=== PATIENT | male | born 1970 | race Caucasian/White ===

== ENCOUNTER 2018-05-04 21:57 | Emergency (ER) | payer MEDICARE, MEDICAID ==
[2018-05-04 22:56] LABS: HEMATOCRIT 45.2 % (42.0-52.0); HEMOGLOBIN 15.4 g/dl (13.5-17.5); MEAN CORPUSCULAR HGB CONC 34.1 g/dl (32.0-36.5); PLATELET COUNT, AUTOMATED 226 10^3/uL (150-450); RED BLOOD COUNT 4.81 10^6/uL (4.30-6.10); RED CELL DISTRIBUTION WIDTH 12.9 % (11.5-14.5); WHITE BLOOD COUNT 10.4 10^3/uL (4.0-10.0)
[2018-05-05 00:08] LABS: PROTHROMBIN TIME 13.2 SECONDS (12.4-14.5)
[2018-05-05 00:09] LABS: INR 0.99
[2018-05-05 00:19] LABS: CALCIUM LEVEL 6.1 MG/DL (8.5-10.1)
[2018-05-05 00:20] LABS: ANION GAP 10 MEQ/L (8-16); BLOOD UREA NITROGEN 9 MG/DL (7-18); CARBON DIOXIDE LEVEL 19 MEQ/L (21-32); CHLORIDE LEVEL 115 MEQ/L (98-107); ETHYL ALCOHOL (ETHANOL) 0.136 % (0.000-0.010); GLOMERULAR FILTRATION RATE > 60.0 (>60); GLUCOSE, FASTING 63 MG/DL (70-100); POTASSIUM SERUM 3.3 MEQ/L (3.5-5.1); SODIUM LEVEL 144 MEQ/L (136-145)
== END 2018-05-05 02:10 | disposition home or self-care (01) ==
LOC: M ED 21:57
DX: S00.212A Abrasion of left eyelid and periocular area, initial encounter (principal); F10.10 Alcohol abuse, uncomplicated; W19.XXXA Unspecified fall, initial encounter; Y92.410 Unspecified street and highway as the place of occurrence of the external cause; F17.200 Nicotine dependence, unspecified, uncomplicated
CPT/HCPCS: 70450

== ENCOUNTER 2018-08-26 12:30 | Emergency (ER) | payer MEDICARE, MEDICAID | END 2018-08-26 15:19 | disposition home or self-care (01) | LOC: M ED 12:30 | DX: S22.41XA Multiple fractures of ribs, right side, initial encounter for closed fracture (principal); W10.9XXA Fall (on) (from) unspecified stairs and steps, initial encounter; Y92.009 Unspecified place in unspecified non-institutional (private) residence as the place of occurrence of the external cause; J98.11 Atelectasis; F17.200 Nicotine dependence, unspecified, uncomplicated; Z87.820 Personal history of traumatic brain injury | CPT/HCPCS: 71046 ==

== ENCOUNTER 2021-02-02 17:30 | Emergency (ER) | payer MEDICARE, MEDICAID ==
[~2021-02-02] VITALS: Ht 182.9 cm; Wt 77.3 kg
[~2021-02-02 17:30] MED LIST: HYDR-3715 PO
[2021-02-02 18:24] LABS: BASO # 0.1 10^3/uL (0.0-0.2); EOS # 0.3 10^3/uL (0.0-0.5); EOS % 4.1 % (0.0-3.0); HEMATOCRIT 51.1 % (42.0-52.0); HEMOGLOBIN 17.2 g/dl (13.5-17.5); LYMPH # 2.9 10^3/uL (1.5-5.0); LYMPH % 41.6 % (24.0-44.0); MEAN CORPUSCULAR HEMOGLOBIN 32.5 pg (27.0-33.0); MEAN CORPUSCULAR HGB CONC 33.7 g/dl (32.0-36.5); MEAN CORPUSCULAR VOLUME 96.4 fl (80.0-96.0); MONO # 1.1 10^3/uL (0.0-0.8); MONO % 16.3 % (2.0-8.0); NEUTROPHILS # 2.6 10^3/uL (1.5-8.5); NEUTROPHILS % 36.6 % (36.0-66.0); PLATELET COUNT, AUTOMATED 222 10^3/uL (150-450)
[2021-02-02 18:47] LABS: ACETAMINOPHEN LEVEL < 2.0 UG/ML (10.0-30.0); ALBUMIN 4.2 GM/DL (3.2-5.2); ALT/SGPT 66 U/L (12-78); BILIRUBIN,DIRECT 0.1 MG/DL (0.0-0.2); BILIRUBIN,TOTAL 0.4 MG/DL (0.2-1.0); BLOOD UREA NITROGEN 5 MG/DL (7-18); CALCIUM LEVEL 8.6 MG/DL (8.5-10.1); CARBON DIOXIDE LEVEL 27 MEQ/L (21-32); CHLORIDE LEVEL 101 MEQ/L (98-107); CK-MB VALUE MASS < 1.0 NG/ML (<3.6); CPK CREATINE PHOSPHOKINASE 51 U/L (39-308); CREATININE FOR GFR 0.94 MG/DL (0.70-1.30); ETHYL ALCOHOL (ETHANOL) 0.239 % (0.000-0.010); GLOMERULAR FILTRATION RATE > 60.0 (>56); GLUCOSE, FASTING 85 MG/DL (70-100); MB/CK RELATIVE INDEX 1.96 (< OR =4); POTASSIUM SERUM 4.7 MEQ/L (3.5-5.1); SALICYLATE LEVEL 5.1 MG/DL (5.0-30.0); SODIUM LEVEL 137 MEQ/L (136-145); TOTAL PROTEIN 8.3 GM/DL (6.4-8.2); TROPONIN I < 0.02 NG/ML (< 0.10)
[2021-02-02 21:40] VITALS: BP 125/75
--- NOTE | 2021-02-03 15:54 | ECGEPIP ---
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
== END 2021-02-02 23:25 | disposition home or self-care (01) ==
LOC: M ED 17:30
DX: F10.120 Alcohol abuse with intoxication, uncomplicated (principal)

== ENCOUNTER 2022-04-05 22:24 | Inpatient (IN) | payer MEDICARE, MEDICAID ==
[~2022-04-05] VITALS: Ht 167.6 cm; Wt 81.4 kg
[2022-04-05] MEDS ORDERED: LORazepam 2 MG/ML VIAL IV STA (22:31)
[2022-04-05 22:38] LABS: ABG BASE EXCESS -10.4 (-2.0-2.0); ABG HCO3 14.9 MEQ/L (22.0-26.0); ABG O2 SATURATION 95.9 % (95.0-99.0); ABG PARTIAL PRESSURE CO2 32.5 mmHg (35.0-45.0); ABG PARTIAL PRESSURE O2 85.2 mmHg (75.0-100.0); ABG STANDARD HCO3 16.4 MEQ/L (22.0-26.0); ABG TOTAL CO2 15.9 MEQ/L (22.0-29.0)
[2022-04-05 22:50] LABS: HEMATOCRIT 48.8 % (42.0-52.0); HEMOGLOBIN 16.8 g/dl (13.5-17.5); MEAN CORPUSCULAR HEMOGLOBIN 33.2 pg (27.0-33.0); MEAN CORPUSCULAR HGB CONC 34.4 g/dl (32.0-36.5); MEAN CORPUSCULAR VOLUME 96.4 fl (80.0-96.0); RED BLOOD COUNT 5.06 10^6/uL (4.30-6.10); WHITE BLOOD COUNT 9.7 10^3/uL (4.0-10.0)
[2022-04-05 23:14] LABS: ATYPICAL LYMPH 1 % (0-5); BASOPHILS 3 % (0-1); EOSINOPHILS 8 % (0-3); LYMPHOCYTES 44 % (16-44); MONOCYTES 13 % (0-5); NEUTROPHILS 31 % (28-66); PLATELET CLUMPS LARGE AMT; PLATELET ESTIMATE NORMAL (NORMAL); SMUDGE CELLS 1+; TOXIC VACUOLATION 1+
[2022-04-05 23:27] LABS: CK-MB VALUE MASS < 1.0 NG/ML (<3.6); CPK CREATINE PHOSPHOKINASE 68 U/L (39-308); MB/CK RELATIVE INDEX 1.47 (< OR =4)
[2022-04-05 23:28] LABS: ACETAMINOPHEN LEVEL < 2.0 UG/ML (10.0-30.0); ALBUMIN 4.1 GM/DL (3.2-5.2); ALT/SGPT 47 U/L (12-78); BILIRUBIN,DIRECT 0.2 MG/DL (0.0-0.2); BILIRUBIN,TOTAL 0.6 MG/DL (0.2-1.0); BLOOD UREA NITROGEN 8 MG/DL (7-18); CALCIUM LEVEL 8.8 MG/DL (8.5-10.1); CARBON DIOXIDE LEVEL 18 MEQ/L (21-32); CHLORIDE LEVEL 103 MEQ/L (98-107); CREATININE FOR GFR 1.09 MG/DL (0.70-1.30); ETHYL ALCOHOL (ETHANOL) < 0.003 % (0.000-0.010); GLOMERULAR FILTRATION RATE > 60.0 (>56); GLUCOSE, FASTING 138 MG/DL (70-100); POTASSIUM SERUM 3.7 MEQ/L (3.5-5.1); SALICYLATE LEVEL 5.6 MG/DL (5.0-30.0); SODIUM LEVEL 134 MEQ/L (136-145); TOTAL PROTEIN 7.7 GM/DL (6.4-8.2)
[2022-04-06] MEDS ORDERED: NS 1,000 ML IV ONE ×2 (01:20)
[2022-04-06 01:21] LABS: AMPHETAMINES LEVEL URINE NEGATIVE (NEGATIVE); BARBITURATES URINE NEGATIVE (NEGATIVE); BENZODIAZEPINES URINE NEGATIVE (NEGATIVE); CANNABINOIDS URINE POSITIVE (NEGATIVE); COCAINE METABOLITE URINE NEGATIVE (NEGATIVE); METHADONE URINE NEGATIVE (NEGATIVE); OPIATES URINE NEGATIVE (NEGATIVE); PHENCYCLIDINE URINE NEGATIVE (NEGATIVE)
[2022-04-06] MEDS ORDERED: HOME MED LIST COMPLETE! XX SCH (02:35)
[2022-04-06] MEDS ORDERED: MOM 30ML SUSPENSION UDC PO PRN (03:20)
[2022-04-06] MEDS ORDERED: LORazepam 2 MG TAB PO PRN (03:20)
[2022-04-06] MEDS ORDERED: LACTULOSE 20 GM/30 ML SYRUP UD PO ONE (04:00)
[2022-04-06 04:04] LABS: HEMATOCRIT 40.8 % (42.0-52.0); MEAN CORPUSCULAR HEMOGLOBIN 33.5 pg (27.0-33.0); MEAN CORPUSCULAR VOLUME 95.6 fl (80.0-96.0); PLATELET COUNT, AUTOMATED 155 10^3/uL (150-450); RED BLOOD COUNT 4.27 10^6/uL (4.30-6.10); WHITE BLOOD COUNT 6.3 10^3/uL (4.0-10.0)
[2022-04-06 04:08] LABS: HEMOGLOBIN 14.3 g/dl (13.5-17.5)
[2022-04-06 04:30] LABS: RSV AMPLIFICATION NEGATIVE (NEGATIVE)
[2022-04-06 04:31] LABS: ALBUMIN 3.2 GM/DL (3.2-5.2); ALT/SGPT 41 U/L (12-78); BILIRUBIN,TOTAL 0.6 MG/DL (0.2-1.0); BLOOD UREA NITROGEN 8 MG/DL (7-18); CALCIUM LEVEL 7.6 MG/DL (8.5-10.1); CARBON DIOXIDE LEVEL 26 MEQ/L (21-32); CHLORIDE LEVEL 108 MEQ/L (98-107); CREATININE FOR GFR 0.83 MG/DL (0.70-1.30); GLOMERULAR FILTRATION RATE > 60.0 (>56); GLUCOSE, FASTING 93 MG/DL (70-100); SODIUM LEVEL 136 MEQ/L (136-145); TOTAL PROTEIN 6.1 GM/DL (6.4-8.2)
[2022-04-06] MEDS ORDERED: THIAMINE INJection 500 MG in NS 100 ML IV SCH (05:00)
[2022-04-06 06:05] VITALS: BP 125/76
[2022-04-06 07:37] VITALS: BP 113/72
[2022-04-06] MEDS: ENOXAPARIN 40MG/0.4ML SYRINGE (J1650 PER 10MG) SC SCH (08:41)
[2022-04-06] MEDS: MULTIVITAMINS/MINERALS THERAP 1 TAB PO SCH (08:41)
[2022-04-06] MEDS: FOLIC ACID 1 MG TAB PO SCH (08:41)
[2022-04-06] MEDS ORDERED: LACTULOSE 20 GM/30 ML SYRUP UD PO SCH (09:00)
[2022-04-06 12:00] VITALS: BP 125/84
[2022-04-06 16:00] VITALS: BP 107/63
[2022-04-06 19:06] VITALS: BP 102/51
[2022-04-06 22:00] VITALS: BP 109/57
[2022-04-07 04:00] VITALS: BP 128/64
[2022-04-07 05:35] LABS: BASO % 0.5 % (0.0-1.0); EOS # 0.2 10^3/uL (0.0-0.5); EOS % 3.5 % (0.0-3.0); HEMATOCRIT 43.2 % (42.0-52.0); HEMOGLOBIN 14.9 g/dl (13.5-17.5); LYMPH # 2.1 10^3/uL (1.5-5.0); LYMPH % 35.7 % (24.0-44.0); MEAN CORPUSCULAR HEMOGLOBIN 32.5 pg (27.0-33.0); MEAN CORPUSCULAR HGB CONC 34.5 g/dl (32.0-36.5); MEAN CORPUSCULAR VOLUME 94.3 fl (80.0-96.0); MONO % 17.1 % (2.0-8.0); NEUTROPHILS # 2.5 10^3/uL (1.5-8.5); NEUTROPHILS % 42.9 % (36.0-66.0); PLATELET COUNT, AUTOMATED 165 10^3/uL (150-450); RED BLOOD COUNT 4.58 10^6/uL (4.30-6.10); WHITE BLOOD COUNT 5.7 10^3/uL (4.0-10.0)
[2022-04-07 06:00] VITALS: BP 140/75
[2022-04-07 06:00] LABS: ALBUMIN 3.3 GM/DL (3.2-5.2); ALT/SGPT 39 U/L (12-78); BILIRUBIN,TOTAL 0.6 MG/DL (0.2-1.0); BLOOD UREA NITROGEN 6 MG/DL (7-18); CALCIUM LEVEL 8.7 MG/DL (8.5-10.1); CARBON DIOXIDE LEVEL 23 MEQ/L (21-32); CHLORIDE LEVEL 108 MEQ/L (98-107); CREATININE FOR GFR 0.81 MG/DL (0.70-1.30); GLOMERULAR FILTRATION RATE > 60.0 (>56); GLUCOSE, FASTING 102 MG/DL (70-100); MAGNESIUM LEVEL 2.1 MG/DL (1.8-2.4); POTASSIUM SERUM 3.5 MEQ/L (3.5-5.1); SODIUM LEVEL 138 MEQ/L (136-145); TOTAL PROTEIN 7.1 GM/DL (6.4-8.2)
[2022-04-07 07:13] VITALS: BP 156/82
[2022-04-07] MEDS: FOLIC ACID 1 MG TAB PO SCH (08:08)
[2022-04-07] MEDS: MULTIVITAMINS/MINERALS THERAP 1 TAB PO SCH (08:08)
[2022-04-07] MEDS: ENOXAPARIN 40MG/0.4ML SYRINGE (J1650 PER 10MG) SC SCH (08:08)
[2022-04-07] MEDS ORDERED: VITMTA PO (08:44)
[2022-04-07] MEDS ORDERED: FOLI1TAB11 PO (08:44)
[2022-04-11] MEDS ORDERED: THIAMINE 100 MG TAB PO SCH (09:00)
== END 2022-04-07 09:41 | disposition home or self-care (01) | DRG 897 ==
LOC: EDBD 22:24 → M ED 22:24 → M ED INP 04-06 03:16 → ENRESERV 04-06 04:52 → M PCU 04-06 06:51
PROVIDERS: ADMIT Family Medicine; ATTEND Family Medicine
DX: F10.231 Alcohol dependence with withdrawal delirium (principal); E72.20 Disorder of urea cycle metabolism, unspecified; G40.909 Epilepsy, unspecified, not intractable, without status epilepticus; Z20.822 Contact with and (suspected) exposure to COVID-19; Z87.820 Personal history of traumatic brain injury; F17.210 Nicotine dependence, cigarettes, uncomplicated; K72.90 Hepatic failure, unspecified without coma

== ENCOUNTER 2025-07-23 16:41 | Observation (INO) | payer MEDICARE, MEDICAID ==
[~2025-07-23] VITALS: Ht 175.3 cm; Wt 86.2 kg
[~2025-07-23 16:41] MED LIST changes: +FOLI1TAB11 PO; +VITMTA PO
[2025-07-23 17:15] LABS: VENOUS BASE EXCESS -17.4 (-2.0-2.0); VENOUS HCO3 8.4 MMOL/L (23.0-27.0); VENOUS O2 SATURATION 99.1 % (60.0-80.0); VENOUS PARTIAL PRESSURE CO2 22.2 mmHg (38.0-50.0); VENOUS PARTIAL PRESSURE O2 170.9 mmHg (30.0-50.0); VENOUS PH 7.195 UNITS (7.330-7.430); VENOUS STANDARD HCO3 12.2 MMOL/L; VENOUS TOTAL CO2 9.1 MMOL/L (24.0-28.0)
[2025-07-23 17:22] LABS: BASO # 0.1 10^3/uL (0.0-0.2); BASO % 1.1 % (0.0-1.0); EOS # 0.5 10^3/uL (0.0-0.5); EOS % 5.9 % (0.0-3.0); LYMPH # 3.3 10^3/uL (1.5-5.0); LYMPH % 36.1 % (24.0-44.0); MONO # 1.5 10^3/uL (0.0-0.8); MONO % 16.4 % (2.0-8.0); NEUTROPHILS # 3.6 10^3/uL (1.5-8.5); NEUTROPHILS % 39.6 % (36.0-66.0); PLATELET COUNT, AUTOMATED 264 10^3/uL (150-450)
[2025-07-23 17:47] LABS: ETHYL ALCOHOL (ETHANOL) 0.004 % (0.000-0.010)
[2025-07-23 17:49] LABS: ALT/SGPT 48 U/L (7.0-40); AST/SGOT 47 U/L (<34); CALCIUM LEVEL 9.9 MG/DL (8.5-10.1); CARBON DIOXIDE LEVEL < 10.0 MMOL/L (20-31); CHLORIDE LEVEL 101 MMOL/L (98-107); CREATININE FOR GFR 0.97 MG/DL (0.70-1.30); GLOMERULAR FILTRATION RATE > 90.0 (>56); MAGNESIUM LEVEL 2.0 MG/DL (1.8-2.4); PHOSPHORUS LEVEL 5.0 MG/DL (2.5-4.9); POTASSIUM SERUM 4.4 MMOL/L (3.5-5.1); SODIUM LEVEL 135 MMOL/L (136-145)
[2025-07-23] MEDS: NS (Normal Saline) 0.9% 1,000 ML IV ONE (19:42)
[2025-07-23] MEDS: ONDANSETRON 4MG 2ML VIAL IV ONE (20:06)
[2025-07-23] MEDS: VALPROATE SOD INJ 1,000 MG in D5W 50 ML IV ONE (22:14)
[2025-07-23 22:33] LABS: AMPHETAMINES LEVEL URINE NEGATIVE (NEGATIVE); BARBITURATES URINE NEGATIVE (NEGATIVE); COCAINE METABOLITE URINE NEGATIVE (NEGATIVE); METHADONE URINE NEGATIVE (NEGATIVE); OPIATES URINE NEGATIVE (NEGATIVE); PHENCYCLIDINE URINE NEGATIVE (NEGATIVE)
[2025-07-23 22:35] LABS: BENZODIAZEPINES URINE POSITIVE (NEGATIVE); CANNABINOIDS URINE POSITIVE (NEGATIVE)
[2025-07-23] MEDS ORDERED: HOME MED LIST COMPLETE! XX SCH (22:45)
[2025-07-24] MEDS ORDERED: THIAMINE 200MG 2ML VIAL IV SCH ×2 (00:25→08:25)
[2025-07-24] MEDS ORDERED: IPRATROPIUM 0.5 MG/ALBUTEROL 2.5 MG INH SOL UD 3 ML NEB PRN (00:55)
[2025-07-24] MEDS ORDERED: ALBUTEROL SULFATE 2.5 MG/0.5 ML INH CONCENTRATE NEB SOLN NEB PRN (00:55)
[2025-07-24 02:57] LABS: VENOUS PH 7.417 UNITS (7.330-7.430)
[2025-07-24 02:58] LABS: VENOUS BASE EXCESS 0.1 (-2.0-2.0); VENOUS HCO3 24.4 MMOL/L (23.0-27.0); VENOUS O2 SATURATION 96.6 % (60.0-80.0); VENOUS PARTIAL PRESSURE CO2 38.8 mmHg (38.0-50.0); VENOUS PARTIAL PRESSURE O2 84.5 mmHg (30.0-50.0); VENOUS STANDARD HCO3 24.6 MMOL/L; VENOUS TOTAL CO2 25.6 MMOL/L (24.0-28.0)
[2025-07-24 03:06] LABS: PLATELET COUNT, AUTOMATED 207 10^3/uL (150-450)
[2025-07-24 03:07] LABS: AMORPHOUS SEDIMENT MODERATE (NEGATIVE); APPEARANCE, URINE TURBID (CLEAR); BACTERIA, URINE AUTO NEGATIVE (NEGATIVE); BILIRUBIN, URINE AUTO NEGATIVE (NEGATIVE); BLOOD, URINE BLOOD NEGATIVE (NEGATIVE); GLUCOSE, URINE (UA) AUTO NEGATIVE (NEGATIVE); KETONE, URINE AUTO TRACE mg/dL (NEGATIVE); LEUKOCYTE ESTERASE, URINE AUTO NEGATIVE (NEGATIVE); MUCUS, URINE SMALL (NEGATIVE); NITRITE, URINE AUTO NEGATIVE (NEGATIVE); PROTEIN, URINE AUTO NEGATIVE (NEGATIVE); RBC, URINE AUTO 0 /HPF (0-3); SPECIFIC GRAVITY URINE AUTO 1.013 (1.002-1.035); SQUAMOUS EPITHELIAL CELL UR AU 0 /HPF (0-6); UROBILINOGEN, URINE AUTO 0.2 mg/dL (0.0-2.0); WBC, URINE AUTO 0 /HPF (0-3)
[2025-07-24] MEDS: D5W/0.9% SODIUM CHLORIDE 1,000 ML IV SCH (03:07)
[2025-07-24] MEDS: cefTRIAXone SOD 2 GM in DEXTROSE 5% (D5W) ADV/MINI-BAG 50 ML IV SCH (03:08)
[2025-07-24 03:30] LABS: CALCIUM LEVEL 8.7 MG/DL (8.5-10.1); CARBON DIOXIDE LEVEL 24 MMOL/L (20-31); CHLORIDE LEVEL 102 MMOL/L (98-107); CREATININE FOR GFR 0.88 MG/DL (0.70-1.30); GLOMERULAR FILTRATION RATE > 90.0 (>56); POTASSIUM SERUM 4.3 MMOL/L (3.5-5.1); SODIUM LEVEL 135 MMOL/L (136-145)
[2025-07-24] MEDS: THIAMINE INJection 500 MG in NS 100 ML IV SCH (03:59)
[2025-07-24] MEDS: AZITHROMYCIN INJ 500 MG, VIAL MATE ADAPTER 1 EACH in NS 250 ML IV ONE (05:01)
[2025-07-24] MEDS ORDERED: ACETAMINOPHEN 325 MG TAB PO PRN (05:25)
[2025-07-24 07:25] LABS: PLATELET COUNT, AUTOMATED 184 10^3/uL (150-450)
[2025-07-24 08:05] LABS: ALT/SGPT 34 U/L (7.0-40); AST/SGOT 30 U/L (<34); CALCIUM LEVEL 8.5 MG/DL (8.5-10.1); CARBON DIOXIDE LEVEL 25 MMOL/L (20-31); CHLORIDE LEVEL 106 MMOL/L (98-107); CREATININE FOR GFR 0.82 MG/DL (0.70-1.30); GLOMERULAR FILTRATION RATE > 90.0 (>56); POTASSIUM SERUM 4.1 MMOL/L (3.5-5.1); SODIUM LEVEL 138 MMOL/L (136-145)
[2025-07-24] MEDS: MULTIVITAMINS/MINERALS THERAP 1 TAB PO SCH (08:29)
[2025-07-24 08:30] LABS: INR 0.95
[2025-07-24] MEDS: DIVALPROEX 500 MG TAB PO SCH (08:30)
[2025-07-24] MEDS: FOLIC ACID 1 MG TAB PO SCH (08:30)
[2025-07-24] MEDS: HEPARIN SOD 5000 UNITS/ML 1 ML VIAL/SYRINGE SC SCH (08:31)
[2025-07-24] MEDS: NICOTINE 21 MG/24 HR 1 EA TRANSDERMAL TD SCH (08:34)
[2025-07-24 08:40] LABS: ALT/SGPT 34.0 U/L (7.0-40); AST/SGOT 30.0 U/L (<34)
[2025-07-24] MEDS ORDERED: THIAMINE 100 MG TAB PO SCH ×2 (09:00)
[2025-07-24] MEDS ORDERED: FOLIC ACID 1 MG TAB PO SCH (09:00)
[2025-07-24] MEDS ORDERED: MULTIVITAMINS/MINERALS THERAP 1 TAB PO SCH (09:00)
[2025-07-24 10:07] VITALS: BP 124/79; TEMP 97.7; O2SAT 94
[2025-07-24] MEDS ORDERED: MULT-90 PO (11:13)
[2025-07-24] MEDS ORDERED: THIA100TA PO (11:13)
[2025-07-24] MEDS ORDERED: FOLI400T13 PO (11:13)
[2025-07-24] MEDS ORDERED: DIVA-41 PO (11:13)
[2025-07-24] MEDS ORDERED: NICO21PAT TD (11:13)
[2025-07-24] MEDS ORDERED: CEFD1CAP9 PO (11:14)
[2025-07-24] MEDS ORDERED: AZIT-12 PO (11:14)
[2025-07-25] MEDS ORDERED: cefTRIAXone SOD 2 GM in DEXTROSE 5% (D5W) ADV/MINI-BAG 50 ML IV SCH (06:00)
[2025-07-25] MEDS ORDERED: AZITHROMYCIN 250 MG TABLET PO SCH (09:00)
[2025-07-26 06:58] LABS: URINE STREP PNEUMONIAE ANTIGEN Not Detected (Not Detected)
[2025-07-27 22:21] LABS: MYCOPLASMA PNEUMONIAE IGG 2.3 (<=0.90); MYCOPLASMA PNEUMONIAE IGM 183.0 U/mL (<770)
== END 2025-07-24 14:21 | disposition home or self-care (01) ==
LOC: EDBD 16:41 → M ED 16:41 → M ED INP 16:42 → M MSPAV 07-24 10:07
PROVIDERS: ADMIT Student in an Organized Health Care Education/Training Program; ATTEND General Practice
DX: F10.231 Alcohol dependence with withdrawal delirium (principal); R56.9 Unspecified convulsions; Z91.148 Patient's other noncompliance with medication regimen for other reason; J96.01 Acute respiratory failure with hypoxia; K76.82 Hepatic encephalopathy; E72.20 Disorder of urea cycle metabolism, unspecified; E87.20 Acidosis, unspecified; K70.9 Alcoholic liver disease, unspecified; R74.01 Elevation of levels of liver transaminase levels; J18.9 Pneumonia, unspecified organism; F12.90 Cannabis use, unspecified, uncomplicated; E87.1 Hypo-osmolality and hyponatremia; Z87.820 Personal history of traumatic brain injury; R78.4 Finding of other drugs of addictive potential in blood; G31.9 Degenerative disease of nervous system, unspecified; D75.89 Other specified diseases of blood and blood-forming organs; F17.200 Nicotine dependence, unspecified, uncomplicated
CPT/HCPCS: 36415; 70450; 71250; 76705; 80047; 80048; 80053; 80076; 80307; 81001; 82077; 82140; 82330; 82803; 83605; 83735; 84100; 85025; 85027; 85610; 85730; 86738; 87040; 87449; 87899; 93005; 93041; 94760; 96365; 96366; 96372; 96375; 96376; 97161; 97530; 99285; G0378; J0456; J0696; J2405; J3411